=== PATIENT | female | born 1960 | race Caucasian/White ===

== ENCOUNTER → 2018-06-25 16:06 | Outpatient (CLI) | payer OTHER, SELFPAY ==
--- NOTE | 2018-06-25 16:10 | DI.RAD.S_ITS ---
PROCEDURE: XR HIP W PEL IF DONE RT 2V INDICATIONS: right hip pain TECHNIQUE: AP pelvis with lateral view(s) of the right hip. COMPARISON: [facility], CR, PELVIS W/LAT HIP (LT) (PNL), 11/13/2013, 13:33. FINDINGS: Bones: No fractures or dislocations. Pelvic ring appears intact. There is [id number]-[id number] right hip joint degeneration with joint space narrowing subchondral sclerosis and osteophyte formation. Compared to the last x-ray on 11/13/13, right hip joint degeneration has worsened. No suspicious bony lesions. Note is made of left hip arthroplasty. Soft tissues: The visualized bowel gas pattern is normal. No suspicious soft tissue calcifications. IMPRESSION: 1. Moderate to severe right hip joint osteoarthritis. 2. Left hip arthroplasty with prosthesis in expected position. Dictated by: Diane Alvarez M.D. on 06/25/2018 at 16:51 Approved by: Diane Alvarez M.D. on 06/25/2018 at 16:54
== END ==
PROVIDERS: PCP Family Medicine; Visit Provider Family Medicine
DX: M25.551 Pain in right hip (principal); M16.11 Unilateral primary osteoarthritis, right hip; Z96.642 Presence of left artificial hip joint
CPT/HCPCS: 73502

== ENCOUNTER → 2018-06-26 09:51 | Outpatient (CLI) | payer OTHER, SELFPAY ==
[2018-06-26 10:55] LABS: Add Manual Diff / Slide Review NO; Basophils Absolute Auto 0 /uL (0-100); Basophils Percent Auto 0.8 % (0-2); Eosinophils Absolute Auto 200 /uL (0-450); Eosinophils Percent Auto 4.4 % (2-4); Hematocrit 40.1 % (36-46); Hemoglobin 13.4 g/dL (12.0-16.0); Lymphocytes Absolute Auto 1500 /uL (1100-4500); Lymphocytes Percent Auto 27.1 % (25-40); Mean Corpuscular HGB Conc 33.6 % (30-36); Mean Corpuscular Hemoglobin 31.1 PG (26-34); Mean Corpuscular Volume 92.7 fL (80-100); Monocytes Absolute Auto 500 /uL (0-900); Monocytes Percent Auto 8.8 % (3-14); Neutrophils Absolute Auto 3300 /uL (1500-7000); Neutrophils Percent Auto 58.9 % (50-75); Platelet Count 242 X10^3/uL (150-400); Red Blood Cell Count 4.32 X10^6/uL (4.0-5.2); Red Cell Distribution Width 12.9 % (11.6-14.8); White Blood Cell Count 5.6 X10^3/uL (4.5-11.0)
[2018-06-26 11:15] LABS: Hemoglobin A1C% w Est Avg Glu 5.8 % (4.0-6.0)
[2018-06-26 11:31] LABS: Alanine Aminotransferase 33 IU/L (9-52); Albumin 4.1 g/dL (3.5-5.0); Albumin Globulin Ratio 1.6 (1.0-2.8); Alkaline Phosphatase 43 U/L (38-126); Aspartate Aminotransferase 26 IU/L (14-36); Bilirubin Total 0.8 mg/dL (0.2-1.3); Blood Urea Nitrogen 24 mg/dL (7-17); Calcium 9.1 mg/dL (8.4-10.2); Carbon Dioxide 28 mmol/L (22-32); Chloride 104 mmol/L (98-107); Cholesterol 171 mg/dL (140-199); Estimated Glomerular Filt Rate > 60.0 mL/min (>60); Globulin 2.6 g/dL (1.7-4.1); Glucose 128 mg/dL (70-100); HDL Cholesterol 60 mg/dL (40-60); HEMOLYSIS < 15 (0-50); LDL Cholesterol Calculated 89 mg/dL (<100); Potassium 4.1 mmol/L (3.4-5.1); Sodium 139 mmol/L (137-145); Total Protein 6.7 g/dL (6.3-8.2); Triglycerides 108 mg/dL (35-150)
[2018-06-26 12:03] LABS: Thyroid Stimulating Hormone 1.99 uIU/mL (0.47-4.68)
== END ==
PROVIDERS: PCP Family Medicine; Visit Provider Family Medicine
DX: R53.83 Other fatigue (principal)
CPT/HCPCS: 36415; 80053; 80061; 83036; 84443; 85025

== ENCOUNTER → 2019-09-03 07:39 | Outpatient (CLI) | payer OTHER, SELFPAY ==
--- NOTE | 2019-09-03 | DI.RAD.S_ITS ---
PROCEDURE: FL JOINT INJECTION LARGE RT INDICATIONS: PAIN IN RIGHT SHOULDER CERVIAL RADICULOPATHY TECHNIQUE: The indications, alternatives, benefits, risks, and complications of the procedure were explained to the patient. Written informed consent was obtained and placed in the chart. The patient was placed in an appropriate position on the fluoroscopy table, and a site was chosen for percutaneous access under fluoroscopic guidance. The site was prepped and draped in a sterile fashion. Local anesthetic was administered using a 1% lidocaine solution. A hypodermic or spinal needle was then used to access the symptomatic joint. Intra-articular location of the needle tip was confirmed by injecting a small amount of contrast, followed by steroid administration. The needle was then withdrawn, and a bandage applied to the puncture site. FINDINGS: Joint injected: Right hip Medications injected: 6 mL of 40 mg/mL Kenalog and 0.5% Ropivacaine mixture. Patient's pain before injection: 5 out of 10. Patient's pain after injection: 3 out of 10. Complications: None. IMPRESSION: Successful fluoroscopically guided administration of steroid and anaesthetic solution into the right hip joint. Dictated by: Messi Perkins M.D. on 09/03/2019 at 10:21 Approved by: Messi Perkins M.D. on 09/03/2019 at 10:22
== END ==
PROVIDERS: PCP Family Medicine; Referring Provider Orthopaedic Surgery; Visit Provider Orthopaedic Surgery
DX: M16.11 Unilateral primary osteoarthritis, right hip (principal)
CPT/HCPCS: 20610; 77002

== ENCOUNTER → 2019-09-19 15:51 | Outpatient (CLI) | payer OTHER, SELFPAY ==
[2019-09-19 17:33] LABS: Add Manual Diff / Slide Review NO; Basophils Absolute Auto 0 /uL (0-100); Basophils Percent Auto 0.6 % (0-2); Eosinophils Absolute Auto 100 /uL (0-450); Eosinophils Percent Auto 2.1 % (2-4); Hematocrit 41.1 % (36-46); Hemoglobin 13.9 g/dL (12.0-16.0); Lymphocytes Absolute Auto 1800 /uL (1100-4500); Lymphocytes Percent Auto 30.1 % (25-40); Mean Corpuscular HGB Conc 33.8 % (30-36); Mean Corpuscular Hemoglobin 31.4 PG (26-34); Mean Corpuscular Volume 92.9 fL (80-100); Monocytes Absolute Auto 700 /uL (0-900); Monocytes Percent Auto 11.8 % (3-14); Neutrophils Absolute Auto 3400 /uL (1500-7000); Neutrophils Percent Auto 55.4 % (50-75); Platelet Count 210 X10^3/uL (150-400); Red Blood Cell Count 4.43 X10^6/uL (4.0-5.2); Red Cell Distribution Width 13.3 % (11.6-14.8); White Blood Cell Count 6.1 X10^3/uL (4.5-11.0)
[2019-09-19 17:44] LABS: Alanine Aminotransferase 28 IU/L (<35); Albumin 4.6 g/dL (3.5-5.0); Albumin Globulin Ratio 1.6 (1.0-2.8); Alkaline Phosphatase 42 U/L (38-126); Amylase 98 U/L (30-110); Aspartate Aminotransferase 34 IU/L (14-36); BUN Creatinine Ratio 55.3 (6-22); Bilirubin Total 0.7 mg/dL (0.2-1.3); Blood Urea Nitrogen 26 mg/dL (7-17); Calcium 9.7 mg/dL (8.4-10.2); Carbon Dioxide 28 mmol/L (22-32); Chloride 103 mmol/L (98-107); Cholesterol 200 mg/dL (140-199); Estimated Glomerular Filt Rate > 60.0 mL/min (>60); Globulin 2.8 g/dL (1.7-4.1); Glucose 100 mg/dL (70-100); HDL Cholesterol 75 mg/dL (40-60); HEMOLYSIS < 15 (0-50); LDL Cholesterol Calculated 109 mg/dL (<100); Lipase 70 U/L (23-300); Sodium 137 mmol/L (137-145); Total Protein 7.4 g/dL (6.3-8.2); Triglycerides 79 mg/dL (35-150)
[2019-09-19 18:16] LABS: Thyroid Stimulating Hormone 2.85 uIU/mL (0.47-4.68)
== END ==
PROVIDERS: PCP Family Medicine; Visit Provider Family Medicine
DX: R10.12 Left upper quadrant pain (principal)
CPT/HCPCS: 36415; 80053; 80061; 82150; 83690; 84443; 85025

== ENCOUNTER → 2019-10-15 08:29 | Outpatient (CLI) | payer OTHER, SELFPAY ==
--- NOTE | 2019-10-15 09:58 | DI.CT.S_ITS ---
PROCEDURE: CT ABDOMEN PELVIS W CON INDICATIONS: Left upper quadrant pain TECHNIQUE: After the administration of oral and intravenous contrast, 5 mm thick sections acquired from the diaphragms to the symphysis. 5 mm thick coronal and sagittal reformats were performed. For radiation dose reduction, the following was used: automated exposure control, adjustment of mA and/or kV according to patient size. COMPARISON: [facility], CT, ABDOMEN/PELVIS WITHOUT CONTRAS, 07/06/2015, 12:00. FINDINGS: Image quality: Excellent. ABDOMEN: Lung bases: Lung bases are clear. Previously identified lung nodules are not included in the current study. Partially visualized bilateral breast implants. Heart size is normal. Solid organs: Liver is normal in size and enhancement. Gallbladder is normal. Biliary system is non-dilated. Pancreas enhances normally. Spleen is normal in size and enhancement. No adrenal nodules. Kidneys are normal in size and enhancement, without hydronephrosis. Peritoneum and bowel: Stomach, small bowel, and colon loops are normal in caliber and wall thickness. Moderate amount of stool noted throughout the colon. No free fluid or air. Nodes and vessels: No retroperitoneal or mesenteric adenopathy. Aorta and inferior vena cava are normal in caliber. Miscellaneous: No ventral hernias. PELVIS: Genitourinary: Bladder wall thickness is normal. Miscellaneous: No inguinal hernias or adenopathy. Bones: No suspicious bony lesions. No vertebral body compression fractures. Spine degenerative disc disease and facet arthropathy. Left hip arthroplasty. Right hip osteoarthritis. Bilateral sacroiliac joint osteoarthritis. IMPRESSION: 1. No acute disease process. 2. No free fluid or free air. 3. No dilated loops of bowel. 4. Moderate fecal loading noted throughout the colon. Please correlate clinical data Dictated by: Trinh Tripp MD, PhD on 10/15/2019 at 17:24 Approved by: Trinh Tripp MD, PhD on 10/15/2019 at 17:36
== END ==
PROVIDERS: PCP Family Medicine; Referring Provider Family Medicine; Visit Provider Family Medicine
DX: R10.12 Left upper quadrant pain (principal)
CPT/HCPCS: 74177

== ENCOUNTER → 2020-12-25 08:41 | Outpatient (CLI) | payer OTHER, SELFPAY ==
--- NOTE | 2020-12-25 08:44 | DI.RAD.S_ITS ---
PROCEDURE: XR HIP W PEL IF DONE RT 2V INDICATIONS: chronic severe rt hip pain TECHNIQUE: AP pelvis with lateral view(s) of the right hip(s). COMPARISON: [facility], , XR HIP W PEL IF DONE RT 2V, 06/25/2018, 16:19. FINDINGS: Bones: No fractures or dislocations. There is a left hip arthroplasty. There are advanced degenerative changes with complete superior joint space loss at the right femoroacetabular joint, subcortical sclerosis, and prominent subcortical cysts. There is flattening of the right femoral head. Pelvic ring appears intact. No suspicious bony lesions. Soft tissues: The visualized bowel gas pattern is normal. No suspicious soft tissue calcifications. IMPRESSION: 1. Advanced degenerative changes in the right hip. Dictated by: Gisele Johnson M.D. on 12/25/2020 at 9:36 Approved by: Gisele Johnson M.D. on 12/25/2020 at 9:37
--- NOTE | 2020-12-25 08:44 | DI.RAD.S_ITS ---
PROCEDURE: XR FOOT RT MIN 3V INDICATIONS: chronic right foot pain TECHNIQUE: Three views of the foot were acquired. COMPARISON: [facility], , FOOT 3V LEFT, 12/29/2015, 21:39. FINDINGS: Bones: No fractures or dislocations. No suspicious bony lesions. There is moderately severe degenerative joint space loss with subcortical sclerosis, cystic change, and marginal spurring at the talonavicular articulation. Soft tissues: No tibiotalar joint effusion. Achilles tendon appears normal. Small dystrophic calcification dorsal to the posterior subtalar joint. IMPRESSION: 1. Focal and advanced degenerative changes at the talonavicular articulation including prominent spurring. Dictated by: Gisele Johnson M.D. on 12/25/2020 at 9:33 Approved by: Gisele Johnson M.D. on 12/25/2020 at 9:35
--- NOTE | 2020-12-25 08:44 | DI.RAD.S_ITS ---
PROCEDURE: XR LUMBAR SPINE MIN 4V INDICATIONS: back pain TECHNIQUE: 5 views of the lumbar spine were acquired, including bilateral oblique views. COMPARISON: None. FINDINGS: Bones: No acute fracture. Multilevel degenerative endplate sclerosis and spurring. Diffuse facet arthropathy. Mild to moderate narrowing of the L4-L5 disc space. Mild narrowing of the L5-S1 disc space. Moderate narrowing of the L1-L2 disc space. Mild dextrocurvature Soft tissues: Overlying bowel gas pattern is normal. No suspicious soft tissue calcifications. Scattered atheromatous calcifications in the aorta. Oblique images: No pars defects. IMPRESSION: Multilevel spondylosis and facet disease as above. Mild dextrocurvature Dictated by: Meño Dalal M.D. on 12/25/2020 at 9:50 Approved by: Meño Dalal M.D. on 12/25/2020 at 9:52
[2020-12-25 09:30] LABS: Hemoglobin A1C% w Est Avg Glu 6.1 % (4.0-6.0)
[2020-12-25 10:05] LABS: Alanine Aminotransferase 29 IU/L (<35); Albumin 4.3 g/dL (3.5-5.0); Albumin Globulin Ratio 1.5 (1.0-2.8); Alkaline Phosphatase 52 U/L (38-126); Aspartate Aminotransferase 32 IU/L (14-36); BUN Creatinine Ratio 54.5 (6-22); Bilirubin Total 0.3 mg/dL (0.2-1.3); Blood Urea Nitrogen 30 mg/dL (7-17); Calcium 9.3 mg/dL (8.4-10.2); Carbon Dioxide 31 mmol/L (22-32); Chloride 104 mmol/L (98-107); Cholesterol 188 mg/dL (140-199); Estimated Glomerular Filt Rate > 60.0 mL/min (>60); Globulin 2.8 g/dL (1.7-4.1); Glucose 119 mg/dL (70-100); HDL Cholesterol 66 mg/dL (40-60); HEMOLYSIS < 15 (0-50); LDL Cholesterol Calculated 103 mg/dL (<100); Potassium 4.5 mmol/L (3.4-5.1); Sodium 140 mmol/L (137-145); Total Protein 7.1 g/dL (6.3-8.2); Triglycerides 95 mg/dL (35-150)
[2020-12-25 10:37] LABS: TSH w/ Reflex to FT4 1.48 uIU/mL (0.47-4.68)
== END ==
PROVIDERS: PCP Family Medicine; Referring Provider Family Medicine; Visit Provider Family Medicine
DX: M77.41 Metatarsalgia, right foot (principal); M16.11 Unilateral primary osteoarthritis, right hip; R73.03 Prediabetes; M54.5 Low back pain; E78.5 Hyperlipidemia, unspecified; M47.816 Spondylosis without myelopathy or radiculopathy, lumbar region
CPT/HCPCS: 36415; 72110; 73502; 73630; 80053; 80061; 83036; 84443

== ENCOUNTER → 2021-01-27 09:00 | Outpatient (CLI) | payer OTHER, SELFPAY ==
[2021-01-28 09:40] LABS: Glucose 1 hour 207 mg/dL (65-199); Glucose 2 hour 172 mg/dL (65-139); Glucose Fasting 147 mg/dL (65-99); Insulin, Fasting 9.4 uIU/mL (2.6-24.9)
== END ==
PROVIDERS: PCP Family Medicine; Referring Provider Family Medicine; Visit Provider Family Medicine
DX: R73.03 Prediabetes (principal)
CPT/HCPCS: 82951; 83525

== ENCOUNTER → 2021-02-09 12:03 | Outpatient (CLI) | payer OTHER, SELFPAY ==
--- NOTE | 2021-02-09 12:04 | DI.MRI.S_ITS ---
PROCEDURE: MR LUMBAR SPINE WO CON INDICATIONS: severe low back pain with right-sided radiculopathy TECHNIQUE: Noncontrast sagittal T1 spin echo and T2 fast echo, sagittal STIR, axial T1 and T2 fast spin echo through the lumbar spine. In cases with scoliosis, additional coronal T2 fast spin echo may be performed. COMPARISON: [facility], MR, L-SPINE WITHOUT CONTRAST, 07/08/2008, 19:11. FINDINGS: Image quality: Excellent. Alignment and Curvature: There is normal bony alignment. Bone Marrow: Marrow is of normal overall signal. No acute vertebral body compression fractures. Spinal Cord: Conus medullaris terminates at the L1-L2 level. Visualized cord demonstrates normal signal and size. Paraspinous Soft Tissues: No paravertebral masses. T11-T12: Imaged in sagittal plane only. Incidental shallow right paracentral disc protrusion noted, not abutting the cord. T12-L1: No canal stenosis or foraminal stenosis. L1-L2: Minimal disc bulge. No canal stenosis or foraminal stenosis. L2-L3: Minimal posterior disc bulge. Right foraminal disc bulge. No canal stenosis or foraminal stenosis. L3-L4: Posterior annulus tear. Broad-based disc bulge. Facet and ligament hypertrophy. No significant change, mild canal stenosis. No foraminal stenosis. L4-L5: Again noted is posterior annulus tear. There is broad-based disc bulge. There is facet and ligament hypertrophy. Mild canal stenosis is not significantly changed. No significant foraminal stenosis. L5-S1: Mild disc bulge. Facet and ligament hypertrophy. No canal stenosis or significant foraminal stenosis. IMPRESSION: 1. Findings are relatively stable. 2. There are annulus tears plus disc bulges at L3-L4 and L4-L5. There is mild canal stenosis at L3-L4 and L4-L5. 3. Multilevel facet arthropathy. Dictated by: Anam Montana M.D. on 02/09/2021 at 14:18 Approved by: Anam Montana M.D. on 02/09/2021 at 14:23
== END ==
PROVIDERS: PCP Family Medicine; Referring Provider Family Medicine; Visit Provider Family Medicine
DX: M47.816 Spondylosis without myelopathy or radiculopathy, lumbar region (principal); M51.36 Other intervertebral disc degeneration, lumbar region; M48.061 Spinal stenosis, lumbar region without neurogenic claudication; M51.26 Other intervertebral disc displacement, lumbar region
CPT/HCPCS: 72148

== ENCOUNTER → 2021-02-10 14:24 | Outpatient (CLI) | payer OTHER, SELFPAY ==
--- NOTE | 2021-02-11 16:14 | DIAB.INIT ---
Initial Diabetes/Prediabetes Education Assessment Name: June June Date: 02/10/21 Time: 230-340p Provider: Dionte Preferred Learning Style: Listening, reading June presents today with , Jeffrey. Recent HgA1c indicates prediabetes status, but OGTT indicates some hyperglycemia. Plans to repeat fasting BG lab with provider. Only FH for DM reported is with her son. Reports PMH of GDM 34 years ago. 2 pregnancies likely with GDM, though only one diagnosed. Second was managed with insulin. First child (undiagnosed GDM) was 11-12# at . Second child 9.6# at . States provider told her at that time that she would certainly get T2DM in her lifetime. June reports being very active up until about two years ago. Main activity barrier right now is the need for hip replacement sx. Her diet recall indicates low carb, adequate fiber/vegetable/fruit intake. Some meals high on protein. States she has reduced carb intake since diagnosis, though was not eating high carb prior. Would like to add back some complex carbs for satiety. Endorses weight gain over the last year. Even with smaller food portions, no decrease in weight per her report. Has been rx?d Ozempic, which will be helpful in both BG and weight management. Reports Metformin causing headaches, constipation, and rashes. Currently taking 500 mg BID. Insurance denied Ozempic first time. Resubmitted preauth by provider and waiting on approval per her report. Seems likely that the increase in BG and weight gain is related to both decrease in activity and elevated risk due to h/o GDM. Anthropometrics: Ht: 67 Wt: 206# (last wt) Weight history: Reports +>10# over the last year Physical Activity: Significant decrease over 1-2 years. Needs hip replacement, scheduled for Apr 20. Taking time off from work starting 02/20/21. Plans to increase walking after sx. Self-Monitoring Blood Glucose: Uses freestyle thom. Checking throughout the day since yesterday. Readings range from 80-130s. Diabetes Medications: 500 mg BID Metformin Rx'd Ozempic - not started yet, waiting approval Pertinent Labs: HgA1c 6.1% OGTT: 147 H, 207 H, 172 Past Medical History: (Last Updated 04/01/20 @ 16:03 by Josh Rapp MD) Hyperlipidemia Metatarsalgia of right foot Osteoarthritis of right hip Prediabetes Intervention: This participant was very receptive. Provided appropriate educational handouts. Discussed the following topics: Completed intake assessment. Discussed barriers to care. Pathophysiology of type 2 DM and PDM Medication education HgA1c, its correlation to blood glucose numbers, and rationale for goal Self-monitoring, how often, and when to check. Suggested checking at different times to evaluate meals Plate Method, impact of macronutrients on blood sugar, meal timing, carbohydrate counting, pairing macronutrients and spreading out carbohydrates for better blood glucose management Link to GDM and T2DM. Diagnosis stat of T2DM 50% within 5 years of GDM. Her success of avoiding diagnosis for 30 years. General recommended servings for carbohydrates at meals and snacks (provided snack list ideas) Role of physical activity and following provider guidelines for safety Created SMART goals for patient self-care and success. Goals: Try gym 3 days per week ( focusing on upper body safely ) Switch to Ozempic when approved Try new snack ideas Follow-up: MACI OREILLY follow-up in 2-3 weeks An Kimball RDN, [place]IL[place] Certified Diabetes Care and Sql Engineer P: [phone] Thank you for this referral
== END ==
PROVIDERS: PCP Family Medicine; Referring Provider Family Medicine; Visit Provider Family Medicine
DX: R73.03 Prediabetes (principal); R73.9 Hyperglycemia, unspecified; Z71.3 Dietary counseling and surveillance; Z79.84 Long term (current) use of oral hypoglycemic drugs
CPT/HCPCS: G0108

== ENCOUNTER → 2021-02-17 11:36 | Outpatient (CLI) | payer OTHER, SELFPAY ==
[2021-02-17 13:25] LABS: Blood Urea Nitrogen 23 mg/dL (7-17); Calcium 9.5 mg/dL (8.4-10.2); Carbon Dioxide 27 mmol/L (22-32); Chloride 104 mmol/L (98-107); Estimated Glomerular Filt Rate > 60.0 mL/min (>60); Glucose 125 mg/dL (70-100); HEMOLYSIS < 15 (0-50); Potassium 4.1 mmol/L (3.4-5.1); Sodium 139 mmol/L (137-145)
== END ==
PROVIDERS: PCP Family Medicine; Referring Provider Family Medicine; Visit Provider Family Medicine
DX: R73.03 Prediabetes (principal)
CPT/HCPCS: 36415; 80048

== ENCOUNTER → 2021-04-06 13:16 | Outpatient (CLI) | payer OTHER, SELFPAY ==
[2021-04-06 13:51] LABS: Add Manual Diff / Slide Review NO; Basophils Absolute Auto 0 /uL (0-100); Basophils Percent Auto 0.5 % (0-2); Eosinophils Absolute Auto 100 /uL (0-450); Eosinophils Percent Auto 2.1 % (2-4); Hematocrit 37.8 % (36-46); Hemoglobin 12.8 g/dL (12.0-16.0); Lymphocytes Absolute Auto 1700 /uL (1100-4500); Mean Corpuscular HGB Conc 33.7 % (30-36); Mean Corpuscular Hemoglobin 30.9 PG (26-34); Mean Corpuscular Volume 91.7 fL (80-100); Monocytes Absolute Auto 700 /uL (0-900); Monocytes Percent Auto 11.6 % (3-14); Neutrophils Absolute Auto 3700 /uL (1500-7000); Neutrophils Percent Auto 58.8 % (50-75); Platelet Count 241 X10^3/uL (150-400); Red Blood Cell Count 4.13 X10^6/uL (4.0-5.2); White Blood Cell Count 6.3 X10^3/uL (4.5-11.0)
[2021-04-06 14:13] LABS: BUN Creatinine Ratio 37.9 (6-22); Blood Urea Nitrogen 22 mg/dL (7-17); Calcium 9.9 mg/dL (8.4-10.2); Carbon Dioxide 28 mmol/L (22-32); Chloride 105 mmol/L (98-107); Estimated Glomerular Filt Rate > 60.0 mL/min (>60); Glucose 113 mg/dL (70-100); HEMOLYSIS < 15 (0-50); Potassium 4.1 mmol/L (3.4-5.1); Sodium 138 mmol/L (137-145)
== END ==
PROVIDERS: PCP Family Medicine; Referring Provider Family Medicine; Visit Provider Family Medicine
DX: Z01.818 Encounter for other preprocedural examination (principal); Z01.810 Encounter for preprocedural cardiovascular examination; E11.8 Type 2 diabetes mellitus with unspecified complications; M47.27 Other spondylosis with radiculopathy, lumbosacral region
CPT/HCPCS: 36415; 80048; 85025; 87797

== ENCOUNTER → 2021-04-06 14:16 | Outpatient (CLI) | payer OTHER, SELFPAY | PROVIDERS: PCP Family Medicine; Visit Provider Family Medicine | DX: Z01.818 Encounter for other preprocedural examination (principal) | CPT/HCPCS: 87797 ==

== ENCOUNTER → 2021-04-07 10:20 | Outpatient (CLI) | payer OTHER, SELFPAY ==
--- NOTE | 2021-04-13 17:13 | DIAB.MNT ---
Initial Diabetes Medical Nutrition Therapy Assessment Name: June June Date: 04/07/21 Time: 1025-11a Dx: Type II Diabetes June presents today regarding her T2Dm. States she has been avoiding dairy due to inflammation. Also following a low carb diet per her report. States she gets her hip sx this month, which she is looking forward to being more active eventually after. States she has been eatin gout 4 days per week choosing mostly salads. Reports not wanting to cook lately. States she accidentally took higher dose of Ozempic and experienced severe diarrhea and abdominal pain. Despite this she is hoping provider will increase dose to aid in weight loss. Seems likely she will be more successful with weight loss after hip sx when she can increase activity. Diet Recall: 5a: coffee with premier protein shake 9a: boiled egg and toast 12p: nothing afternoon snack: +/- nuts 6p: salad or teriyaki salad or ribs bbq 9-10p: nothing or apple and PB beverages; 2-3c water. 2c coffee with protein Anthropometrics: Ht: 5'7 Wt: 206# last wt Weight history: Endorses about 3-4# recent intentional weight loss Physical Activity: No program. Plans to walk after sx. Self-Monitoring Blood Glucose: Has not been checking recently, did not add new sensor for thom. Last readings reported range from 95-154. 100% TIR for 70-180 mg/dL over last 30 days. Diabetes Medications: 0.25 Ozempic Pertinent Labs: HgA1c 6.1% OGTT: 147 H, 207 H, 172 Past Medical History: (Last Updated 03/18/21 @ 11:53 by Grzegorz David DO) Facet arthropathy, lumbar Gait instability Hyperlipidemia Lumbosacral spondylosis with radiculopathy Metatarsalgia of right foot Osteoarthritis of right hip Prediabetes Nutrition Rx: Carbohydrates: Meal: 30g Snack: 15-30g Nutrition Diagnosis: - Predicted excessive sodium and saturated fat intake r/t eating out aeb pt report - Inadequate fluid intake r/t nutrition related knowledge deficit aeb diet recall - Physical inactivity r/t hip sx needed aeb pt repor t Intervention: This participant was very receptive. Provided appropriate educational handouts. Discussed the following topics: Fluid recs and rationale for intake for DM and overall health Physical activity plans post sx Impact of eating out on heart health Meal planning based on her food preferences. Created SMART goals for patient self-care and success. Goals: Try gym 3 days per week ( focusing on upper body safely )- not met Switch to Ozempic when approved- met Try new snack ideas- met Try a new meal as discussed- new Increase water to 45-60oz daily Follow-up: MACI OREILLY follow-up in prn. States she would like to call for follow-up prn instead of scheudling today. Encouraged her to call with any questions, concerns, or follow-up needs. An Kimball RDN, CDCES Certified Diabetes Care and Forming Roll Operator Heavy [employer] P: [phone] Thank you for this referral
== END ==
PROVIDERS: PCP Family Medicine; Referring Provider Family Medicine; Visit Provider Family Medicine
DX: E11.9 Type 2 diabetes mellitus without complications (principal)
CPT/HCPCS: 93010; 97802

== ENCOUNTER → 2021-04-07 11:01 | Outpatient (CLI) | payer OTHER, SELFPAY | PROVIDERS: PCP Family Medicine; Referring Provider Family Medicine; Visit Provider Family Medicine | DX: Z01.810 Encounter for preprocedural cardiovascular examination (principal); E11.8 Type 2 diabetes mellitus with unspecified complications; M47.27 Other spondylosis with radiculopathy, lumbosacral region | CPT/HCPCS: 93005 ==

== ENCOUNTER → 2021-12-31 08:31 | Outpatient (CLI) | payer OTHER, SELFPAY ==
[2021-12-31 10:15] LABS: Hemoglobin A1C% w Est Avg Glu 6.1 % (4.0-6.0)
[2021-12-31 10:39] LABS: Alanine Aminotransferase 14 IU/L (<35); Albumin Globulin Ratio 1.6 (1.0-2.8); Alkaline Phosphatase 59 U/L (38-126); Aspartate Aminotransferase 20 IU/L (14-36); Bilirubin Total 0.4 mg/dL (0.2-1.3); Blood Urea Nitrogen 22 mg/dL (7-17); Calcium 8.8 mg/dL (8.4-10.2); Carbon Dioxide 26 mmol/L (22-32); Chloride 104 mmol/L (98-107); Cholesterol 123 mg/dL (140-199); Estimated Glomerular Filt Rate > 60 mL/min (>60); Globulin 2.5 g/dL (1.7-4.1); Glucose 124 mg/dL (70-100); HDL Cholesterol 55 mg/dL (40-60); HEMOLYSIS < 15 (0-50); LDL Cholesterol Calculated 57 mg/dL (<100); Potassium 4.5 mmol/L (3.4-5.1); Sodium 139 mmol/L (137-145); Total Protein 6.5 g/dL (6.3-8.2); Triglycerides 55 mg/dL (35-150)
[2021-12-31 10:59] LABS: TSH w/ Reflex to FT4 1.46 uIU/mL (0.47-4.68)
== END ==
PROVIDERS: PCP Family Medicine; Referring Provider Family Medicine; Visit Provider Family Medicine
DX: E11.9 Type 2 diabetes mellitus without complications (principal); E78.5 Hyperlipidemia, unspecified; F32.9 Major depressive disorder, single episode, unspecified; F41.9 Anxiety disorder, unspecified
CPT/HCPCS: 36415; 80053; 80061; 83036; 84443

== ENCOUNTER → 2022-02-21 09:00 | Outpatient (CLI) | payer OTHER, SELFPAY ==
[2022-02-21 11:41] LABS: COVID19 -Nasal RAPID Negative (Negative)
== END ==
PROVIDERS: PCP Family Medicine; Visit Provider Surgery
DX: Z20.822 Contact with and (suspected) exposure to COVID-19 (principal); Z01.812 Encounter for preprocedural laboratory examination
CPT/HCPCS: 87635; C9803

== ENCOUNTER 2022-02-22 08:38 | Day surgery (SDC) | payer OTHER, SELFPAY ==
[2022-02-22 09:22] VITALS: BMI 28.1
[2022-02-22 09:29] VITALS: BP 110/74; PULSE 74; RESP 16; TEMP 36.4; O2SAT 99
[2022-02-22] MEDS: LACTATED RINGERS 1,000 ML 200 ML IV (09:40)
--- NOTE | 2022-02-22 10:45 | PM.HP.1 ---
History of Present Illness History of Present Illness Date Patient Seen: 02/22/22 Time Patient Seen: 10:45 Chief complaint: Colonoscopy Narrative: The patient presents for colorectal screening. They have never had any previous examination for such. No personal or family history of colon cancer. She is a history of chronic constipation and occasionally has left lower quadrant discomfort. Otherwise no gastrointestinal symptoms of blood per rectum unintentional weight loss, emesis. Patient History Medical History Facet arthropathy, lumbar Gait instability Hyperlipidemia Lumbosacral spondylosis with radiculopathy Metatarsalgia of right foot Osteoarthritis of right hip Prediabetes Surgical History History of third molar tooth extraction Status post appendectomy Status post delivery Status post delivery Status post laparoscopy Status post tonsillectomy and adenoidectomy Family & Social History Family History Mother Heart disease Father Cancer Sister Gallstones Social History: household members spouse Tobacco & Substance use: Smoking Status Former smoker alcohol intake current alcohol intake frequency holiday/special occasion Substance Use Type does not use Meds Home Medications and Allergies Home Medications Medication Instructions Recorded Confirmed Type Parking Permit... #1 ea 12/25/20 02/22/22 Rx hydrocodone 5 mg-acetaminophen 325 1 tab PO Q8H PRN pain #60 tabs 01/19/21 02/22/22 Rx mg tablet flash glucose scanning reader #1 ea 08/24/21 02/22/22 Rx (FreeStyle Dilma 2 [place]) dilma free style #1 ea 08/24/21 02/22/22 Rx metformin 500 mg tablet 500 mg PO BID #180 tabs 11/01/21 02/22/22 Rx lorazepam 0.5 mg tablet (Ativan) 0.5 mg PO BID PRN anxiety #30 tabs 12/31/21 02/22/22 Rx rosuvastatin 5 mg tablet (Crestor) 5 mg PO DAILY #90 tabs 12/31/21 02/22/22 Rx semaglutide 1 mg/dose (4 mg/3 mL) 1 mg (0.75 mL) SUBCUT QWEEK #3 mL 12/31/21 02/22/22 Rx subcutaneous pen injector (Ozempic) sertraline 100 mg tablet See Rx Instructions .Route 12/31/21 02/22/22 Rx .COMPLEX #180 tabs flash glucose sensor (FreeStyle ##2 01/14/22 02/22/22 Rx Dilma 2 Sensor kit) celecoxib 200 mg capsule (Celebrex) 200 mg PO DAILY 02/22/22 02/22/22 History triamcinolone acetonide 0.1 % 1 applic topical BID PRN Rash 02/22/22 02/22/22 History topical cream Allergies Allergy/AdvReac Type Severity Reaction Status Date / Time iodine [IODINE] Allergy Mild LIP Verified 02/22/22 09:20 SWELLING shellfish derived Allergy Mild LIP Verified 02/22/22 09:20 [SHELLFISH DERIVED] SWELLING sulfamethoxazole AdvReac Unknown RASH Verified 02/22/22 09:20 [SULFAMETHOXAZOLE] trimethoprim [TRIMETHOPRIM] AdvReac Unknown RASH Verified 02/22/22 09:20 PAIN MEDICATION FROM POST OP AdvReac Intermediate HYPOTENSION Uncoded 02/22/22 09:20 ? NAME Exam Vital Signs (past 8 hours): - 02/22/22 09:29 Temperature 97.5 F L Pulse Rate 74 Respiratory Rate 16 Blood Pressure 110/74 Pulse Oximetry 99 Oxygen Delivery Method Room Air Oxygen Delivery Method Room Air Narrative Exam Narrative: General adult woman alert oriented anxious Abdomen soft nontender nondistended Assessment & Plan Assessment & Plan narrative: The patient requires colorectal screening and colonoscopy is recommended. Technical details were discussed. Risks, benefits, alternatives explained. Risks including but not limited to myocardial infarction, aspiration, bleeding, pain, missed lesion, incomplete examination, need for further radiographic studies, colonic perforation, and need for major abdominal surgery were discussed. All questions were answered to their satisfaction, and they are in agreement with this plan. Time Spent With Patient Critical Care time: I spent a total of [] minutes of critical care time on this patient's care today; this time is exclusive of procedural time.
--- NOTE | 2022-02-22 11:18 | PM.OP.COLON ---
Operative Date/Time/Diagnoses Date of procedure: 02/22/22 Time of procedure: 11:18 Pre-op diagnosis: Screening colonoscopy Post-op diagnosis: same Procedure & Clinicians Study performed: Colonoscopy Same procedure as scheduled: Yes Indications: Screening Surgeon: Enzo Francis Procedure Notes Procedure in detail: The history and physical was performed/updated and the patient is ASA class is 2. The procedure was discussed in detail with the patient. Potential risks complications including infection, bleeding, missed diagnosis, perforation, need for surgery, and were explained. Their questions were answered and informed consent was obtained. Patient was brought to the procedure room and placed standard monitoring equipment. The patient's vital signs were monitored continuously throughout the entire procedure. Prior to starting time-out was performed. The patient was placed in the left lateral recumbent position. Procedural sedation was administered by anesthesia. Examination began with a thorough inspection of the perianal area there was no evidence of fissures, fistulae, external hemorrhoids or cutaneous malignancy. The colonoscopy scope was then placed into the anal canal and was advanced to the cecum, which was identified by the ileocecal valve, the appendiceal orifice and the confluence of the taenia. The scope was then slowly withdrawn examining colon thoroughly in all directions, irrigating it of any residual stool. FINDINGS 1. No masses or polyps 2. Normal healthy colon The patient tolerated the procedure well. They will be discharged once criteria are met. The prep was of good/excellent quality. The withdrawl time was 7 minutes. Specimen(s): none sent Complications: none Impression: Normal colonoscopy Post-procedure Recommendations: Colonoscopy in 10 years and High fiber diet Disposition: same day surgery
[2022-02-22 11:20] VITALS: BP 103/59; PULSE 72; RESP 18; TEMP 36.4; O2SAT 97
[2022-02-22 11:25] VITALS: BP 107/62; PULSE 70; RESP 14; O2SAT 98
[2022-02-22 11:30] VITALS: BP 99/74; PULSE 75; RESP 16; O2SAT 98
[2022-02-22 11:42] VITALS: BP 116/71; PULSE 68; RESP 18; TEMP 37.3; O2SAT 96
== END 2022-02-22 11:53 | disposition home or self-care (01) ==
PROVIDERS: PCP Family Medicine; Referring Provider Surgery; Visit Provider Surgery
PROC: 0DJD8ZZ Inspection of Lower Intestinal Tract, Via Natural or Artificial Opening Endoscopic (ICD-10-PCS; CPT 45378; principal; 2022-02-22 10:15)
DX: Z12.11 Encounter for screening for malignant neoplasm of colon (principal); R73.03 Prediabetes; E78.5 Hyperlipidemia, unspecified
CPT/HCPCS: 45378; J2704; J3010

== ENCOUNTER → 2022-08-04 16:11 | Outpatient (CLI) | payer OTHER, SELFPAY ==
--- NOTE | 2022-08-04 16:13 | DI.RAD.S_ITS ---
PROCEDURE: XR LUMBAR SPINE 2-3V INDICATIONS: low back pain with right-sided radiculopathy TECHNIQUE: 3 views of the lumbar spine were acquired. COMPARISON: [facility], CR, XR LUMBAR SPINE MIN 4V, 12/25/2020, 9:26. FINDINGS: Bones: 5 [id number] vertebrae are present. There is normal bony alignment. No vertebral body compression fractures. No suspicious bony lesions. Endplate degenerative changes at L4-5 with moderate disc space narrowing. The sacroiliac joints are normal. Disc space narrowing of T10-11 and T11-12 with anterior osteophytes at this level. Facet arthrosis in the lower lumbar spine. Soft tissues: Overlying bowel gas pattern is normal. No suspicious soft tissue calcifications. The aorta has atherosclerotic calcifications with no aneurysmal dilatation. IMPRESSION: 1. No acute abnormality. 2. Disc space narrowing consistent with disc disease at L4-5. 3. Disc space narrowing at T10-11 and T11-12 consistent with disc disease. 4. Facet arthrosis in the lower lumbar spine.. Dictated by: Michael Benson M.D. on 08/05/2022 at 6:34 Approved by: Michael Benson M.D. on 08/05/2022 at 6:37
[2022-08-04 18:31] LABS: Creatinine Urine Random 138.3 mg/dL
[2022-08-04 18:34] LABS: Microalbumi Creatinin Ratio Ur 5.7 ug/mg CR (<30); Microalbumin Urine Random 0.8 mg/dL (0-1.6)
[2022-08-05 05:14] LABS: x Labcorp Estim. Avg Glu (eAG) 117 mg/dL (.); x Labcorp Hemoglobin A1c 5.7 % (4.8-5.6)
== END ==
PROVIDERS: PCP Family Medicine; Referring Provider Family Medicine; Visit Provider Family Medicine
DX: M48.04 Spinal stenosis, thoracic region (principal); E11.9 Type 2 diabetes mellitus without complications; M47.27 Other spondylosis with radiculopathy, lumbosacral region; R26.81 Unsteadiness on feet; M79.676 Pain in unspecified toe(s)
CPT/HCPCS: 36415; 72100; 82043; 82570; 83036

== ENCOUNTER → 2022-09-01 15:19 | Outpatient (CLI) | payer OTHER, SELFPAY ==
--- NOTE | 2022-09-01 15:21 | DI.MRI.S_ITS ---
PROCEDURE: MR LUMBAR SPINE WO CON INDICATIONS: LOWER BACK PAIN W/RIGHT RADICULOPATHY TECHNIQUE: Noncontrast sagittal T1 spin echo and T2 fast echo, sagittal STIR, and T2 fast spin echo through the lumbar spine. In cases with scoliosis, additional coronal T2 fast spin echo may be performed. COMPARISON: [facility], , MR LUMBAR SPINE WO CON, 02/09/2021, 12:14. FINDINGS: Image quality: Excellent. Alignment and Curvature: There is normal bony alignment. Bone Marrow: Marrow is of normal overall signal. No acute vertebral body compression fractures. Spinal Cord: Conus medullaris terminates at the L1-L2 level. Visualized cord demonstrates normal signal and size. Paraspinous Soft Tissues: No paravertebral masses. T12-L1: Unchanged. Minimal disc bulge. No canal stenosis or foraminal stenosis. L1-L2: Unchanged. Minimal disc bulge. Mild facet hypertrophy. L2-L3: There is a probable free fragment in the lateral aspect of the right L2-L3 foramen resulting in a degree of right foraminal L2 nerve root. Reference sagittal image 6/2 and axial image 13/5, both T2 sequences. No canal stenosis or left foraminal narrowing. L3-L4: Unchanged findings. Annulus tear. Disc bulge. Mild facet and ligament hypertrophy. No canal stenosis or foraminal stenosis. L4-L5: Disc height loss as before. Disc bulge. Posterior annulus tear is not as well seen. Facet and ligament hypertrophy. Mild canal stenosis is stable. No significant foraminal stenosis. L5-S1: Unchanged findings. Mild disc bulge. Facet hypertrophy. No canal stenosis or significant foraminal stenosis. IMPRESSION: 1. There appears to be interval development of a subtle free disc fragment in the lateral aspect of the right foramen at L2-L3. This is not definite. Please correlate for presence or absence of symptoms of a right L2 radiculitis. 2. Other findings are stable. There is mild canal stenosis at L4-L5. 3. Multilevel facet arthropathy. Dictated by: nAam Montana M.D. on 09/01/2022 at 23:22 Approved by: Anam Montana M.D. on 09/01/2022 at 23:32
== END ==
PROVIDERS: PCP Family Medicine; Referring Provider Family Medicine; Visit Provider Family Medicine
DX: M47.27 Other spondylosis with radiculopathy, lumbosacral region (principal); M79.674 Pain in right toe(s); M77.41 Metatarsalgia, right foot; M48.061 Spinal stenosis, lumbar region without neurogenic claudication; M47.816 Spondylosis without myelopathy or radiculopathy, lumbar region
CPT/HCPCS: 72148

== ENCOUNTER → 2023-07-12 09:53 | Outpatient (CLI) | payer OTHER, SELFPAY ==
[2023-07-12 10:25] LABS: Add Manual Diff / Slide Review NO; Basophils Absolute Auto 100 /uL (0-100); Basophils Percent Auto 0.8 % (0-2); Eosinophils Absolute Auto 100 /uL (0-450); Eosinophils Percent Auto 1.8 % (2-4); Hematocrit 38.6 % (36-46); Hemoglobin 12.8 g/dL (12.0-16.0); Lymphocytes Absolute Auto 1500 /uL (1100-4500); Lymphocytes Percent Auto 20.4 % (25-40); Mean Corpuscular HGB Conc 33.1 % (30-36); Mean Corpuscular Hemoglobin 31.7 PG (26-34); Mean Corpuscular Volume 95.9 fL (80-100); Monocytes Absolute Auto 800 /uL (0-900); Monocytes Percent Auto 11.2 % (3-14); Neutrophils Absolute Auto 5000 /uL (1500-7000); Neutrophils Percent Auto 65.8 % (50-75); Platelet Count 305 X10^3/uL (150-400); Red Blood Cell Count 4.02 X10^6/uL (4.0-5.2); Red Cell Distribution Width 13.4 % (11.6-14.8); White Blood Cell Count 7.5 X10^3/uL (4.5-11.0)
[2023-07-12 10:33] LABS: Hemoglobin A1C% w Est Avg Glu 5.2 % (4.0-6.0)
[2023-07-12 10:49] LABS: Alanine Aminotransferase 32 IU/L (<35); Albumin 4.1 g/dL (3.5-5.0); Albumin Globulin Ratio 1.5 (1.0-2.8); Alkaline Phosphatase 47 U/L (38-126); Aspartate Aminotransferase 32 IU/L (14-36); BUN Creatinine Ratio 58.2 (6-22); Bilirubin Total 0.3 mg/dL (0.2-1.3); Blood Urea Nitrogen 32 mg/dL (7-17); Calcium 9.3 mg/dL (8.4-10.2); Carbon Dioxide 31 mmol/L (22-32); Chloride 107 mmol/L (98-107); Cholesterol 138 mg/dL (140-199); Estimated Glomerular Filt Rate > 60 mL/min (>60); Globulin 2.7 g/dL (1.7-4.1); Glucose 100 mg/dL (80-110); HDL Cholesterol 55 mg/dL (40-60); HEMOLYSIS < 15 (0-50); LDL Cholesterol Calculated 63 mg/dL (<100); Sodium 140 mmol/L (137-145); Total Protein 6.8 g/dL (6.3-8.2); Triglycerides 99 mg/dL (35-150)
[2023-07-12 11:02] LABS: Creatinine Urine Random 99.7 mg/dL
[2023-07-12 11:06] LABS: Microalbumin Urine Random < 0.6 mg/dL (0-1.6)
[2023-07-13 08:11] LABS: Apolipoprotein B 56 mg/dL (<90)
[2023-07-14 09:24] LABS: TSH w/ Reflex to FT4 1.31 uIU/mL (0.47-4.68)
== END ==
LOC: LAB 09:54
PROVIDERS: PCP Family Medicine; Referring Provider Family Medicine; Visit Provider Family Medicine
DX: E78.5 Hyperlipidemia, unspecified (principal); E11.9 Type 2 diabetes mellitus without complications; F41.9 Anxiety disorder, unspecified; R53.83 Other fatigue; R42 Dizziness and giddiness
CPT/HCPCS: 36415; 80053; 80061; 82043; 82172; 82570; 83036; 84443; 85025

== ENCOUNTER → 2024-05-16 12:25 | Outpatient (CLI) | payer OTHER, SELFPAY ==
[2024-05-16 14:38] LABS: Hemoglobin A1C% w Est Avg Glu 5.5 % (4.0-6.0)
== END ==
PROVIDERS: PCP Family Medicine; Referring Provider Family Medicine; Visit Provider Family Medicine
DX: E11.9 Type 2 diabetes mellitus without complications (principal)
CPT/HCPCS: 36415; 83036

== ENCOUNTER → 2024-09-07 09:21 | Outpatient (CLI) | payer OTHER, SELFPAY ==
[2024-09-07 10:29] LABS: Add Manual Diff / Slide Review NO; Basophils Absolute Auto 0 /uL (0-100); Eosinophils Absolute Auto 200 /uL (0-450); Eosinophils Percent Auto 4.7 % (2-4); Hematocrit 40.3 % (36-46); Hemoglobin 13.3 g/dL (12.0-16.0); Lymphocytes Absolute Auto 1200 /uL (1100-4500); Mean Corpuscular HGB Conc 32.9 % (30-36); Mean Corpuscular Hemoglobin 32.1 PG (26-34); Mean Corpuscular Volume 97.5 fL (80-100); Monocytes Absolute Auto 700 /uL (0-900); Monocytes Percent Auto 13.2 % (3-14); Neutrophils Absolute Auto 2900 /uL (1500-7000); Neutrophils Percent Auto 58.1 % (50-75); Platelet Count 214 X10^3/uL (150-400); Red Blood Cell Count 4.13 X10^6/uL (4.0-5.2); Red Cell Distribution Width 12.6 % (11.6-14.8); White Blood Cell Count 5.1 X10^3/uL (4.5-11.0)
[2024-09-07 10:35] LABS: Alanine Aminotransferase 23 IU/L (<35); Albumin 4.4 g/dL (3.5-5.0); Albumin Globulin Ratio 1.9 (1.0-2.8); Alkaline Phosphatase 55 U/L (38-126); Aspartate Aminotransferase 24 IU/L (14-36); BUN Creatinine Ratio 49.1 (6-22); Bilirubin Total 0.3 mg/dL (0.2-1.3); Blood Urea Nitrogen 26 mg/dL (7-17); Calcium 9.4 mg/dL (8.4-10.2); Carbon Dioxide 27 mmol/L (22-32); Chloride 103 mmol/L (98-107); Cholesterol 153 mg/dL (140-199); Estimated Glomerular Filt Rate > 60 mL/min (>60); Globulin 2.3 g/dL (1.7-4.1); Glucose 129 mg/dL (70-99); HDL Cholesterol 77 mg/dL (40-60); HEMOLYSIS < 15 (0-50); LDL Cholesterol Calculated 66 mg/dL (<100); Potassium 4.5 mmol/L (3.4-5.1); Sodium 138 mmol/L (137-145); Total Protein 6.7 g/dL (6.3-8.2); Triglycerides 49 mg/dL (35-150)
[2024-09-07 10:41] LABS: Hemoglobin A1C% w Est Avg Glu 5.6 % (4.0-6.0)
[2024-09-07 11:03] LABS: TSH w/ Reflex to FT4 1.87 uIU/mL (0.47-4.68)
== END ==
PROVIDERS: PCP Family Medicine; Referring Provider Family Medicine; Visit Provider Family Medicine
DX: E11.9 Type 2 diabetes mellitus without complications (principal); E78.5 Hyperlipidemia, unspecified; G47.00 Insomnia, unspecified; F41.9 Anxiety disorder, unspecified; F32.9 Major depressive disorder, single episode, unspecified
CPT/HCPCS: 36415; 80053; 80061; 83036; 84443; 85025